=== PATIENT | male | born 1980 | race Caucasian/White ===

== ENCOUNTER 2018-05-12 20:45 | Emergency (ER) | payer OTHER ==
[2018-05-12] MEDS ORDERED: HYDROCODONE/CHLORPHEN 5 ML/OSYR ONE (21:56)
[2018-05-12 22:01] LABS: Urine Blood TRACE (NEG); Urine Glucose NEGATIVE (NEG); Urine Protein NEGATIVE (NEG)
[2018-05-12] MEDS ORDERED: OSELTAMIVIR 75 MG CAP ONE (22:21)
[2018-05-12] MEDS ORDERED: ACETAMINOPHEN 500 MG TAB ONE (22:21)
--- NOTE | 2018-05-12 23:57 | ER ---
Nurse's Notes [facility] Name: Tin Angulo Age: 38 yrs Sex: Male : 1980 Arrival Date: 05/12/2018 Time: 20:57 Bed 24 Private MD: Diagnosis: Influenza due to identified novel influenza A virus Presentation: 05/12 21:06 Presenting complaint: Patient states: "COUGH AND CONGESTION FOR ONE DAY" AND "FLANK rv PAIN THAT GOES ON AND OFF". Transition of care: patient was not received from another setting of care. Onset of symptoms was May 12, 2018 at 08:00. Risk Assessment: Do you want to hurt yourself or someone else? Patient reports no desire to harm self or others. Initial Sepsis Screen: Does the patient meet any 2 criteria? No. Patient's initial sepsis screen is negative. Does the patient have a suspected source of infection? No. Patient's initial sepsis screen is negative. Care prior to arrival: None. 21:06 Method Of Arrival: Ambulatory rv 21:06 Acuity: FUNMI 3 rv Historical: - Allergies: 21:09 No Known Allergies; rv - Home Meds: 21:09 None [Active]; rv - PSHx: 21:09 Hernia repair; Appendectomy; rv - Immunization history:: Adult Immunizations up to date. - Social history:: Smoking status: Patient uses tobacco products, smokes one pack cigarettes per day. - Ebola Screening: : Patient negative for fever greater than or equal to 101.5 degrees Fahrenheit, and additional compatible Ebola Virus Disease symptoms Patient denies exposure to infectious person Patient denies travel to an Ebola-affected area in the 21 days before illness onset. Screenin:11 Abuse screen: Denies threats or abuse. Denies injuries from another. Nutritional rv screening: No deficits noted. Tuberculosis screening: No symptoms or risk factors identified. Fall Risk None identified. Assessment: 21:10 General: Appears in no apparent distress. comfortable, Behavior is calm, cooperative. rv Pain: Complains of pain in FLANK PAIN. Neuro: Level of Consciousness is awake, alert, obeys commands, Oriented to person, place, time. Cardiovascular: Heart tones S1 S2 present. Respiratory: Airway is patent. GI: No signs and/or symptoms were reported involving the gastrointestinal system. : No signs and/or symptoms were reported regarding the genitourinary system. EENT: No signs and/or symptoms were reported regarding the EENT system. Derm: Skin is intact. Vital Signs: 21:09 BP 135 / 74; Pulse 91; Resp 18; Temp 101.7; Pulse Ox 96% ; Weight 86.18 kg; Height 5 rv ft. 8 in. (172.72 cm) (R); 22:06 BP 107 / 72; Pulse 78; Pulse Ox 95% on R/A; rv 23:26 BP 109 / 68; Pulse 78; Pulse Ox 93% on R/A; rv 21:09 Body Mass Index 28.89 (86.18 kg, 172.72 cm) rv ED Course: 20:57 Patient arrived in ED. al2 21:08 Triage completed. rv 21:10 Jono Escobar NP is PHCP. pm1 21:[address] MD is Attending Physician. pm1 21:11 Arm band placed on right wrist. rv 21:11 Patient has correct armband on for positive identification. Bed in low position. Call rv light in reach. Side rails up X 1. Adult w/ patient. Pulse ox on. NIBP on. 21:38 Flu Sent. rv 21:38 Influenza Screen (A Sent. rv 22:19 Chest Pa And Lat (2 Views) XRAY In Process Unspecified. EDMS 05/13 00:08 No provider procedures requiring assistance completed. Patient did not have IV access rv during this emergency room visit. Administered Medications: 05/12 21:56 Drug: Tussionex Pennkinetic ER 5 ml Route: PO; rv 22:05 Follow up: Response: No adverse reaction rv 22:35 Drug: Tamiflu 75 mg Route: PO; rv 23:26 Follow up: Response: No adverse reaction rv 05/13 00:07 Follow up: Response: No adverse reaction rv 05/12 22:35 Drug: Tylenol 1000 mg Route: PO; rv 23:26 Follow up: Response: No adverse reaction rv 05/13 00:06 Follow up: Response: No adverse reaction rv Outcome: 05/12 23:56 Discharge ordered by . pm1 05/13 00:08 Discharged to home ambulatory. rv Condition: good Discharge instructions given to patient, Instructed on discharge instructions, follow up and referral plans. medication usage, Prescriptions given X 2. 00:08 Patient left the ED. rv Signatures: Dispatcher [employer] Jono Plata, TRAVEL TICKETING REVIEWER TRAVEL TICKETING REVIEWER pm1 Corin, Justa al2 Scot Lindsey, RN RN rv
--- NOTE | 2018-05-12 23:57 | EDPHYS ---
Physician Documentation [facility] Name: Tin Angulo Age: 38 yrs Sex: Male : 1980 Arrival Date: 05/12/2018 Time: 20:57 Bed 24 Private MD: ED Physician Nathan St HPI: 05/12 22:00 This 38 yrs old Male presents to ER via Ambulatory with complaints of Flu pm1 Symptoms. 22:00 The patient or guardian reports cough, with productive sputum, that is green. Onset: pm1 The symptoms/episode began/occurred yesterday. Modifying factors: The symptoms are alleviated by Tylenol, ibuprofen, the symptoms are aggravated by nothing. Associated signs and symptoms: Pertinent positives: fever, Pertinent negatives: diarrhea, rhinorrhea, sore throat, vomiting. The patient has not experienced similar symptoms in the past. Patient just got out a cruise ship yesterday. Other people on the cruise were being diagnosed with the flu. Patient complaining of body aches, fever, and cough. No shortness of breath or chest pain. Historical: - Allergies: 21:09 No Known Allergies; rv - Home Meds: 21:09 None [Active]; rv - PSHx: 21:09 Hernia repair; Appendectomy; rv - Immunization history:: Adult Immunizations up to date. - Social history:: Smoking status: Patient uses tobacco products, smokes one pack cigarettes per day. - Ebola Screening: : Patient negative for fever greater than or equal to 101.5 degrees Fahrenheit, and additional compatible Ebola Virus Disease symptoms Patient denies exposure to infectious person Patient denies travel to an Ebola-affected area in the 21 days before illness onset. ROS: 22:00 Constitutional: Negative for fever, chills, and weight loss, Eyes: Negative for injury, pm1 pain, redness, and discharge, ENT: Negative for injury, pain, and discharge, Neck: Negative for injury, pain, and swelling, Cardiovascular: Negative for chest pain, palpitations, and edema. 22:00 Abdomen/GI: Negative for abdominal pain, nausea, vomiting, diarrhea, and constipation, Back: Negative for injury and pain, : Negative for injury, bleeding, discharge, and swelling, MS/Extremity: Negative for injury and deformity, Skin: Negative for injury, rash, and discoloration, Neuro: Negative for headache, weakness, numbness, tingling, and seizure. 22:00 Respiratory: Positive for cough, Negative for shortness of breath, wheezing. Exam: 22:00 Constitutional: This is a well developed, well nourished patient who is awake, alert, pm1 and in no acute distress. Head/Face: Normocephalic, atraumatic. Eyes: Pupils equal round and reactive to light, extra-ocular motions intact. Lids and lashes normal. Conjunctiva and sclera are non-icteric and not injected. Cornea within normal limits. Periorbital areas with no swelling, redness, or edema. ENT: Nares patent. No nasal discharge, no septal abnormalities noted. Tympanic membranes are normal and external auditory canals are clear. Oropharynx with no redness, swelling, or masses, exudates, or evidence of obstruction, uvula midline. Mucous membranes moist. Neck: Trachea midline, no thyromegaly or masses palpated, and no cervical lymphadenopathy. Supple, full range of motion without nuchal rigidity, or vertebral point tenderness. No Meningismus. Chest/axilla: Normal chest wall appearance and motion. Nontender with no deformity. No lesions are appreciated. Cardiovascular: Regular rate and rhythm with a normal S1 and S2. No gallops, murmurs, or rubs. No pulse deficits. Respiratory: Lungs have equal breath sounds bilaterally, clear to auscultation and percussion. No rales, rhonchi or wheezes noted. No increased work of breathing, no retractions or nasal flaring. Abdomen/GI: Soft, non-tender, with normal bowel sounds. No distension or tympany. No guarding or rebound. No evidence of tenderness throughout. Back: No spinal tenderness. No costovertebral tenderness. Full range of motion. Skin: Warm, dry with normal turgor. Normal color with no rashes, no lesions, and no evidence of cellulitis. MS/ Extremity: Pulses equal, no cyanosis. Neurovascular intact. Full, normal range of motion. 22:00 Neuro: Orientation: is normal, Motor: is normal, moves all fours. Vital Signs: 21:09 BP 135 / 74; Pulse 91; Resp 18; Temp 101.7; Pulse Ox 96% ; Weight 86.18 kg; Height 5 rv ft. 8 in. (172.72 cm) (R); 22:06 BP 107 / 72; Pulse 78; Pulse Ox 95% on R/A; rv 23:26 BP 109 / 68; Pulse 78; Pulse Ox 93% on R/A; rv 21:09 Body Mass Index 28.89 (86.18 kg, 172.72 cm) rv MDM: 21:21 Patient medically screened. pm1 23:56 Data reviewed: vital signs. Counseling: I had a detailed discussion with the patient pm1 and/or guardian regarding: the historical points, exam findings, and any diagnostic results supporting the discharge/admit diagnosis, lab results, radiology results, the need for outpatient follow up, to return to the emergency department if symptoms worsen or persist or if there are any questions or concerns that arise at home. 05/12 21:29 Order name: Flu pm1 05/12 21:30 Order name: Influenza Screen (A ; Complete Time: 22:07 EDMS 05/12 21:29 Order name: Chest Pa And Lat (2 Views) XRAY pm1 05/12 21:56 Order name: Urine Dipstick--Ancillary (enter results); Complete Time: 22:07 ms 05/12 21:29 Order name: Urine Dipstick-Ancillary (obtain specimen); Complete Time: 22:05 pm1 Administered Medications: 21:56 Drug: Tussionex Pennkinetic ER 5 ml Route: PO; rv 22:05 Follow up: Response: No adverse reaction rv 22:35 Drug: Tamiflu 75 mg Route: PO; rv 23:26 Follow up: Response: No adverse reaction rv 05/13 00:07 Follow up: Response: No adverse reaction rv 05/12 22:35 Drug: Tylenol 1000 mg Route: PO; rv 23:26 Follow up: Response: No adverse reaction rv 05/13 00:06 Follow up: Response: No adverse reaction rv Disposition: 05/12/18 23:56 Discharged to Home. Impression: Influenza due to identified novel influenza A virus. - Condition is Stable. - Discharge Instructions: Fever, Adult, Influenza, Adult. - Prescriptions for Tamiflu 75 mg Oral Capsule - take 1 tablet by ORAL route every 12 hours for 5 days; 10 tablet. Guaifenesin AC 10- 100 mg/5 mL Oral Liquid - take 10 milliliter by ORAL route every 4 hours As needed; 240 milliliter. - Medication Reconciliation Form, Thank You Letter, Antibiotic Education, Prescription Opioid Use, Work release form form. - Follow up: Emergency Department; When: As needed; Reason: Worsening of condition. Follow up: Private Physician; When: 2 - 3 days; Reason: Recheck today's complaints, Continuance of care, Re-evaluation by your physician. - Problem is new. - Symptoms have improved. Signatures: Dispatcher [employer] EDMO Jono Escobar NP LITHOGRAPHER HELPER pm1 Scot Lindsey RN RN rv Corrections: (The following items were deleted from the chart) 00:08 05/12 23:56 05/12/2018 23:56 Discharged to Home. Impression: Influenza due to rv identified novel influenza A virus. Condition is Stable. Forms are Medication Reconciliation Form, Thank You Letter, Antibiotic Education, Prescription Opioid Use. Follow up: Emergency Department; When: As needed; Reason: Worsening of condition. Follow up: Private Physician; When: 2 - 3 days; Reason: Recheck today's complaints, Continuance of care, Re-evaluation by your physician. Problem is new. Symptoms have improved. pm1
--- NOTE | 2018-05-13 09:24 | RAD REPORT ---
EXAM DESCRIPTION: RAD - Chest Pa And Lat (2 Views) - 05/12/2018 10:20 pm CLINICAL HISTORY: Cough and congestion, fever COMPARISON: None. TECHNIQUE: PA and lateral views of the chest were obtained. FINDINGS: The lungs are clear of a focal infiltrate, mass or consolidation. Interstitial markings ar e mildly prominent in the mid and lower lung duggan. Baseline for the patient is unknown. A mild inte rstitial edema or infiltrate cannot be excluded. Heart size is normal and central vasculature is within normal limits. No pleural effusion or pneumot horax seen. No acute bony finding noted. No aortic abnormality. IMPRESSION: No focal consolidation or mass to suspect bacterial pneumonia. Interstitial markings are mildly prominent. On a baseline study, interstitial edema or infiltrate can not be masked.
== END 2018-05-13 00:08 | disposition home or self-care (01) ==
LOC: ER 20:45
DX: J10.1 Influenza due to other identified influenza virus with other respiratory manifestations (principal); F17.210 Nicotine dependence, cigarettes, uncomplicated
CPT/HCPCS: 71046; 81003; 87804; 99284